=== PATIENT | male | born 1970 | race Hispanic/Latino ===

== ENCOUNTER 2025-10-06 18:41 | Emergency (ER) | payer BC, SELFPAY ==
--- OUTSIDE RECORDS SUMMARY | 2022-11-25 04:15 | XMS_ITS | Continuity of Care Document ---
Author Organization [facility] Address [address] [place] [phone] Phone Care Team Providers Care Prior Authorization Technician Name Role Phone Juli Martinez OD Unavailable Unavailable Allergies, Adverse Reactions, Alerts Substance Reaction Status Criticality No Known Allergies Active No Inform ation Medications Medication Instructions Dosage Effective Dates (start - stop) Status Comments amoxicillin 500 mg tablet take 1 tablet by oral route every 8 hours 500 MG - Active ibuprofen 600 mg tablet take 1 tablet by oral route 3 times every day with food 600 MG - Active Procedures Procedure Date REFRACTION EYE EXAM, NEW PATIENT INTRAORAL PERIAPICAL FIRST FILM 020 BITEWING - SINGLE FILM LIMITED ORAL EXAM, PROBLEM FOCUSED ORAL HYGIENE INSTRUCTIONS Chart Approval New Dental Client INITIAL ORAL EXAM Caries Risk Assessmt And Document W/High Risk ORAL HYGIENE INSTRUCTIONS NUTRIT CNSL CONTROL DENTAL DISEASE INTRAORAL-COMPLETE SERIES Chart Approval New Dental Client OFFICE/OUTPATIENT VISIT, EST OFFICE/OUTPATIENT VISIT, EST OFFICE/OUTPATIENT VISIT, EST OFFICE/OUTPATIENT VISIT, EST OFFICE/OUTPATIENT VISIT, NEW Advance Directives Directive Yes / No Effective Date File Name No Information Encounters Encounter Description Practice Location Reason(s) For Visit Diagnoses Date Provider Providers Copied on Encounter [facility], [address] [place] [address], [id number], [place] tel:[phone] [facility] blurry vision (chief complaint) Body mass index (BMI) 25.0-25.9, adultRefractive amblyopia, left eyeHypermetropia , left eyeRegular astigmatism, bilateralPresbyo kendall 3 Juan Carolavelle. [address] [place] [address], [id number], [place]. tel:[phone] [facility], [address] [place] [address], [id number], [place] tel:[phone] [facility] Dental Encounter for dental exam and cleaning w abnormal findings 0 Darío Liban. [address] [place] [address], [id number], [place]. tel:[phone] [facility], [address] [place] [address], [id number], [place] tel:[phone] [facility] Dental Encounter for dental exam and cleaning w abnormal findingsEncounte r for dental exam and cleaning w abnormal findings 7 No Information OFFICE/OUTPA TIENT VISIT, EST [facility], [address] [place] [address], [id number], [place] tel:[phone] [facility] No Information 2 Catalino Dover. [address] [place] [address], [id number]. tel:[phone] OFFICE/OUTPA TIENT VISIT, EST [facility], [address] [place] [address], [id number], [place] tel:[phone] [facility] No Information 1 No Information OFFICE/OUTPA TIENT VISIT, EST [facility], [address] [place] [address], [id number], [place] tel:[phone] [facility] No Information 1 Taz Cash. [address] [place] [address], [id number]. tel:[phone] OFFICE/OUTPA TIENT VISIT, [facility], [address] [place] [address], [id number], [place] tel:[phone] [facility] No Information 1 Taz Cash. [address] [place] [address], [id number]. tel:[phone] OFFICE/OUTPA TIENT VISIT, [facility], [address] [place] [address], [id number], [place] tel:[phone] [facility] No Information 1 Taz Cash. [address] [place] [address], [id number]. tel:[phone] Family History Family Member Type Diagnosis Age At Onset No Information Payers Payer name Insurance type Covered green party ID Authoriza tion(s) No Information Social History Type Description Quantity Date Captured Comments Alcohol Use Details No Caffeine Use Details No Tobacco Use Status Heavy cigarette smok er (20-39 cigs/day) Smoking Status Heavy tobacco smoker Smoking Tobacco Use Details Cigarette: No Details Available Cigarette: 1 Packs per day Sex Male Vital Signs Date / Time: Height Weight BMI Pulse Rate Blood Pressure Temperature Respiratory Rate Body Surface Area Head Circumference Head Circ. Percentile Wt./Tushar. Percentile BMI percentile Pulse Ox Inhaled Ox 10:37 AM 68.00 in 75.296 kg (166.00 lbs) 25.2 4 kg/m eter (2) 110/75 mm[Hg] Chief Complaint And Reason For Visit From encounter dated '11/25/2022 10:15'. blurry vision (chief complaint). Description: patient complains of blurry vision at near, OU. OS>OD. Patient does not currently wear any correction whatsoever. Patient used to wear glasses asa child and states that one lens was very thin and one was very thick and states that everything looks small and blurry if OD is closed. Patient was not consistent in wearing glasses, so discontinueduse from childhood. Patient currently also complains of night time driving glare. Does not use any drops. Pain 0/10. (-) BABCOCK, diplopia, flashes/floaters(-) flu shot Reason For Referral Reason For Referral No Information Plan Of Treatment Date Type Action Status Goal Tdap. Due on due Goal Dental Referral. Due on due Goal CT-Colonography. Due on due Goal FIT. Due on due Goal FIT-DNA. Due on due Goal Hepatitis C screening. Due o n due Goal Unhealthy drug u se screening. Due on due Goal Zoster vaccine (). Due on due Goal Lipid panel. Due on 023 due Goal Influenza vaccine. Due on due Goal FOBT. Due on due Goal Td vaccine. Due on 23 due Goal Depression screening. Due on due Goal HEALTH RISK ASSE SSMENT TEST. Due on due Goal Colonoscopy. Due on 023 due Goal Sigmoidoscopy. Due on due Goal Diabetes screening. Due on due Goal Dietary manageme nt education, guidance, and counseling completed Goal Diabetes screening. Due on A due Goal Sigmoidoscopy. Due on due Goal Colonoscopy. Due on 020 due Goal HEALTH RISK ASSE SSMENT TEST. Due on due Goal Depression screening. Due on due Goal Td vaccine. Due on 20 due Goal FOBT. Due on due Goal Influenza vaccine. Due on due Goal Lipid panel. Due on 020 due Goal Tdap. Due on due Goal Dental Referral. Due on due Referral Ordered: Referrals: Maxillofacial Surgery. Evaluate and treat ordered Patient Education Tooth and Gum Pain: Car e Instructions completed Patient Education Learning About Dental C are completed History Of Present Illness Encounter Date Complaint History Of Prese nt Illness blurry vision patient complain s of blurry vision at near, OU. OS>OD. Patient does not currently wear any correction whatsoever. Patient used to wear glasses as a child and states that one lens was very thin and one was very thick and states that everything looks small and blurry if OD is closed. Patient was not consistent in wearing glasses, so discontinued use from childhood. Patient currently also complains of night time driving glare. Does not use any drops. Pain 0/10. (-) BABCOCK, diplopia, flashes/floaters(-) flu shot Functional Status Date Functional Assessmen t Pain Score 0/10 Instructions Date Instruction Additional Infor lianne Impression/Plan Related to Refra ctive amblyopia, left eye Impression/Plan Related to Hyper metropia, left eye Impression/Plan Related to Regul ar astigmatism, bilateral Impression/Plan Related to Presb yopia Dietary management e ducation, guidance, and counseling Related to Body mass index [BMI] 25.0-25.9, adult Assessments Type Assessment Date assessment Body mass index [BMI] 25.0-25.9, adult assessment Refractive amblyopia, left eye J assessment Hypermetropia, left eye 023 assessment Regular astigmatism, bilateral J assessment Presbyopia impression Refractive amblyopia, left eye: H53.022 impression Hypermetropia, left eye: H52.02 impression Regular astigmatism, bilateral: H52.223 impression Presbyopia: H52.4 Patient Care Teams Name Effective Dates (start - stop) Status Members No Information
--- NOTE | ~2025-10-06 | US_ITS ---
EXAMINATION: US scrotum doppler, 10/06/2025 18:48 LEASING ASSOCIATE HISTORY: pain right testicle Comparison: None Technique: Max-scale and color Doppler images were obtained of the testes with spectral analysis to document arterial and venous flow. Findings: Right Testicle:Right testicle 3.5 x 1.9 x 2.7 cm, normal parenchyma, normal flow. Right Epidiymis:Right epididymal simple cyst 5 x 5 mm, no increased flow. Left Testicle: Left testicle 4 x 1.9 x 2.1 cm, normal parenchyma, normal flow. Left Epidiymis: Unremarkable. Normal flow. Hydrocele: Small simple right hydrocele. Small simple left hydrocele. . Varicocele: None Scrotum: Unremarkable. No skin thickening. Impression: No acute process. Reviewed, dictated and finalized at location P. ING ASSOCIATE Impression: No acute process.
[2025-10-06 18:45] VITALS: BP 113/77; PULSE 58; RESP 18; TEMP 36.6; O2SAT 99
[2025-10-06 19:30] LABS: Add Urine Microscopic? NO; Appearance Urine Clear (Clear); Glucose Urine UA Negative (Negative); Leukocyte Esterase Ur Negative LEU/UL (Negative); Nitrate Urine Negative (Negative); Specific Grav Ur 1.027 (1.001-1.035)
--- NOTE | 2025-10-06 20:02 | ED_ITS ---
HPI - Male Genitourinary General Chief complaint: Urogenital-Male Stated complaint: pain in R testicle Time Seen by Provider: 10/06/25 19:04 History of Present Illness HPI Narrative: 55-year-old male with a history of prior stroke currently on daily aspirin therapy. Also has a history of prostate enlargement on tamsulosin. Patient presents to the emergency department today with right-sided testicular pain for 1 day. No testicular swelling or traumatic injury. No dysuria but states he is going to the bathroom frequently. No foul odor or blood in the urine. No back pain, pelvic pain, nausea, vomiting, fever, chills. No concerns of rash or STD. Has residual left-sided deficits from his stroke worse in the upper extremity than his left-sided lower extremity and has some facial droop on the left side chronic. Related Data Allergies Allergy/AdvReac Type Severity Reaction Status Date / Time No Known Allergies Allergy Verified 10/06/25 18:48 Review of Systems 2 Review of Systems: As reviewed above in HPI Exam Narrative: GENERAL: [Well-appearing, well-nourished, and in no acute distress.] HEAD: [Normocephalic, atraumatic.] EYES: [PERRLA and EOMI.] ENT: Nares clear, no rhinorrhea or epistaxis. Mucous membranes moist. NECK: Supple. CHEST: [Clear to auscultation. No respiratory distress.] HEART: [Regular rate and rhythm]. No murmur heard. [Normal peripheral pulses.] ABDOMEN: [Soft, nondistended], [nontender], [No rigidity or guarding] : Chaperoned testicular examination shows no asymmetry or masses. No penile masses or tenderness. No rashes. No inguinal hernias. No scrotal erythema or enlargement. No discoloration or signs of injury or trauma. EXTREMITIES: Normal range of motion. [No edema.] SKIN: Warm, dry, no rash. NEURO: [No focal deficits]. Alert and oriented [x3.] PSYCH: [Normal mood and affect.] Course Vital Signs Vital signs: Vital Signs Temperature 36.6 C 10/06/25 18:45 Pulse Rate 58 L 10/06/25 18:45 Respiratory Rate 18 10/06/25 18:45 Blood Pressure 113/77 10/06/25 18:45 Pulse Oximetry 99 10/06/25 18:45 Oxygen Delivery Room Air 10/06/25 18:45 Temperature 36.6 C 10/06/25 18:45 Pulse Rate 55 L 10/06/25 20:43 Respiratory Rate 18 10/06/25 20:43 Blood Pressure 108/95 H 10/06/25 20:43 Pulse Oximetry 98 10/06/25 20:43 Oxygen Delivery Room Air 10/06/25 18:45 MDM - Male Genitourinary MDM Narrative Medical decision making narrative: 55-year-old male with a history of prior stroke currently on daily aspirin therapy. Also has a history of prostate enlargement on tamsulosin. Patient presents to the emergency department today with right-sided testicular pain for 1 day. No testicular swelling or traumatic injury. No dysuria but states he is going to the bathroom frequently. No foul odor or blood in the urine. No back pain, pelvic pain, nausea, vomiting, fever, chills. No concerns of rash or STD. Has residual left-sided deficits from his stroke worse in the upper extremity than his left-sided lower extremity and has some facial droop on the left side chronic. Chaperoned testicular examination shows no asymmetry or masses. No penile masses or tenderness. No rashes. No inguinal hernias. No scrotal erythema or enlargement. No discoloration or signs of injury or trauma. Patient is hemodynamically stable. Suspect possibility of UTI, hydrocele, varicocele, low suspicion testicular torsion based on exam findings. Patient given [place] for analgesia urinalysis and ultrasound obtained. Workup shows no urinary tract signs of infection or blood. Scrotal ultrasound shows simple right hydrocele otherwise no acute process. No skin thickening. He has a right epididymal simple cyst as well no increased floor signs of torsion. Likely source of patient's pain. Will be discharged with Urology follow-up as there are no urgent or emergent findings. Medical Records Attestation: I reviewed the patient's medical records. Lab Data Attestation: I reviewed the patient's lab results. Labs: Lab Results 10/06/25 Range/Units 19:24 Urine Color Yellow (Yellow) Urine Appearance Clear (Clear) Urine pH 5.5 (5.0-9.0) Ur Specific [place] 1.027 (1.001-1.035) Urine Protein Negative (Negative) mg/dL Urine Glucose (UA) Negative (Negative) mg/dL Urine Ketones Trace H (Negative) mg/dL Ur Blood (Man) Negative (Negative) Urine Nitrate Negative (Negative) Urine Bilirubin Negative (Negative) Urine Urobilinogen 1.0 (<2.0) mg/dL Leukocyte Esterase Rfl Negative (Negative) JENS/UL Imaging Data Attestation: I personally reviewed and interpreted this imaging study as follows: My impression: Impressions Scrotum Ultrasound 10/06/25 19:52 Impression: No acute process. Discharge Plan Discharge Clinical Impression: Pain in right testicle, Hydrocele, right, Epididymal cyst Patient Disposition: Home Condition: Stable Instructions: Antibiotic Form, Testicle Pain (ED) Additional Instructions: ultrasound shows a small simple cyst in the right testicle as well as some simple appearing fluid called the hydrocele in the scrotal sac. No signs of urgent or emergent concerns. No testicular detorsion masses or signs of infection. You can wear compression underwear for scrotal support and take Tylenol/ ibuprofen every 6-8 hours for pain control. Follow-up with the provided urologist if not improving with conservative therapy. Return with any worsening pain, nausea, vomiting, fever or any other emergent issues. Patient Language: Salvadorean Follow-up/Referrals: Marck Van MD [Physician, Urology] - 1 Week Referral Note: Right testicular pain and simple appearing cyst/hydrocele PHYSICIAN NOT ON STAFF,NONSTAFF [Primary Care Provider] Time of Disposition: 20:18
--- OUTSIDE RECORDS SUMMARY | 2025-10-06 20:03 | XMS_ITS | Patient Health Record ---
Author Organization [facility] Address [address] [place] [address] Care Team Providers Care International Editorial Producer Name Role Phone CAROLE WEBER Unavailable [phone] Reason For Referral No Information Problems Problem Type SNOMED Code ICD Code Onset Dates Problem Status W/U Status Risk Notes Problem Neck sprain (234795573) Neck sprain (847.0) 08/20/2014 Active confirmed [id number] - Problem Neck pain (79597574) Neck pain (723.1) 08/20/2014 Active confirmed [facility] [id number] - Plan Of Treatment No Information Insurance Providers Payer Name Payer Address Payer Phone Subscriber Number Group Number Insured Name Patient Relationship to Insured Coverage Start Date Coverage End Date Time Warden [id number] Didier Torrez Self - patient is the insured 4 [phone]
--- OUTSIDE RECORDS SUMMARY | 2025-10-06 20:03 | XMS_ITS | Clinical Summary ---
Author Organization [facility] Address [address] [place] [id number] Care Team Providers Care Retention Manager Name Role Phone Brianna Shaw Primary Care Provider [phone] Medications atorvastatin (Lipitor) 80 MG tablet Take 1 tablet (80 mg total) by mouth 1 (one) time each day in the evening. 09/12/2025 Active carvedilol (Coreg) 6.25 MG tablet Take 1 tablet (6.25 mg total) by mouth in the morning and 1 tablet (6.25 mg total) in the evening. Take with meals. 07/25/2025 Active clopidogrel (Plavix) 75 MG tablet Take 1 tablet (75 mg total) by mouth 1 (one) time each day. 03/23/2025 Active docusate sodium (Colace) 100 MG capsule take 1 capsule by mouth twice daily as needed 09/19/2025 Active escitalopram (Lexapro) 10 MG tablet Take 1 tablet (10 mg total) by mouth 1 (one) time each day. 09/19/2025 Active HYDROcodone-silvio taminophen (Hutchinson) 5-325 MG tablet TAKE ONE-HALF TABLET BY MOUTH EVERY 6 HOURS NEEDED FOR PAIN 09/19/2025 Active losartan (Cozaar) 50 MG tablet Take 1 tablet (50 mg total) by mouth 1 (one) time each day. Active potassium chloride (Klor-Con) 20 MEQ packet Take 20 mEq by mouth. Active tamsulosin (Flomax) 0.4 MG capsule Take 1 capsule (0.4 mg total) by mouth 1 (one) time each day. 07/25/2025 Active amLODIPine (Norvasc) 5 MG tablet Take 1 tablet (5 mg total) by mouth 1 (one) time each day. 07/25/2025 Active ASPIRIN 81 MG chewable tablet Chew 1 tablet (81 mg total) 1 (one) time each day. 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 Mixed hyperlipidemia 08/09/2025 History of CVA (cerebrovascular accident) 2024 Left-sided weakness 07/26/2025 Chest pain 04/01/2025 Tobacco use 03/22/2025 Essential hypertension 03/12/2025 Elevated blood pressure reading 04/25/2024 Poison oak dermatitis 11/10/2023 Encounters Date Type Department Care Team Description 10/03/2025 10:30 AM JEWELRY CASTING MODEL MAKER APPRENTICE Ancillary Procedure [facility] [place] [address] [place] [phone] Cerebrovascular accident (CVA), unspecified mechanism 10/02/2025 Orders Only [facility] [place] [address] [place] [phone] Provider, Historical 09/24/2025 10:00 AM JEWELRY CASTING MODEL MAKER APPRENTICE Consult [facility] [place] [address] [place] [phone] Terrance Marie MD Cerebrovascular accident (CVA), unspecified mechanism (Primary Dx); Elevated blood pressure reading; Mixed hyperlipidemia from Last 3 Months Social History Tobacco Use Types Packs/Day Years Used Date Smoking Tobacco: Never Passive Smoke Exposure: Never Smokeless Tobacco: Never Sex and Gender Information Value Date Recorded Sex Assigned at Not on file Legal Sex Male 2:44 AM EST Gender Identity Not on file Sexual Orientation Not on file Last Filed Vital Signs Vital Sign Reading Time Taken Comments Blood Pressure 120/64 09/24/2025 10:15 AM JEWELRY CASTING MODEL MAKER APPRENTICE Pulse 48 09/24/2025 10:15 AM JEWELRY CASTING MODEL MAKER APPRENTICE Temperature - - Respiratory Rate - - Oxygen Saturation - - Inhaled Oxygen Concentration - - Weight 72.1 kg (159 lb) 09/24/2025 10:15 AM JEWELRY CASTING MODEL MAKER APPRENTICE Height - - Body Mass Index - - Plan of Treatment Upcoming Encounters Date Type Department Care Team (Late st Contact Info) Description 10/18/2025 4:00 PM JEWELRY CASTING MODEL MAKER APPRENTICE Appointment [facility] Cardiac Ultrasound [address] [place] [address] 12/03/2025 2:30 PM JEWELRY CASTING MODEL MAKER APPRENTICE Office Visit [facility] [place] [address] [place] [address] Terrance Marie MD [address] [place] [address] Health Maintenance Due Date Last Done Comments CT Colonography 1969 Cologuard 1969 Colonoscopy 1969 Colorectal Cancer Screening 1969 FIT 1969 FOBT 1969 HIV Screening 1969 Sigmoidoscopy 1969 MMR Vaccines (1 of 1 - Standard series) 1970 Annual Physical 12/02/1971 Diabetes: Foot Exam 1979 Diabetes: Retinopathy Screening 1979 Depression Screening 1981 Diabetes: Urine Protein Screening 1988 Hepatitis B Vaccines (1 of 3 - 19+ 3-dose series) 1988 Pneumococcal Vaccine: 50+ Years (1 of 1 - PCV) 2019 Zoster Vaccines (1 of 2) 2019 COVID-19 Vaccine (1 - 2024-2 6 season) 2025 Influenza Vaccine (#1) 2025 Diabetes: Hemoglobin A1C 12/30/2025 025, 08/04/2025 Lipid Panel 09/29/2026 09/29/2025, 08/04/2025 DTaP/Tdap/Td Vaccines (4 - T d or Tdap) 01/02/2034 01/02/2024, 04/14/2016, 04/14/2016 Respiratory Syncytial Virus (RSV) 60 years and older and/or patients (1 - 1-dose 75+ series) 2044 HPV Vaccines Aged Out No longer eligi ble based on patient's age to complete this topic Hepatitis A Vaccines Aged Out No long er eligible based on patient's age to complete this topic Meningococcal B Vaccine Aged Out No l onger eligible based on patient's age to complete this topic Meningococcal Vaccine Aged Out No rogerio guido eligible based on patient's age to complete this topic Respiratory Syncytial Virus (RSV) <20 months Aged Out No longer eligible b ased on patient's age to complete this topic Procedures Procedure Name Priority Date/Time Associated Diagnosis Comments CT ANGIO HEAD NECK W AND WO IV CONTRAST Routine 10/02/2025 7:59 AM JEWELRY CASTING MODEL MAKER APPRENTICE EXTERNAL LAB REPORT Routine 10/02/2025 7 :52 AM JEWELRY CASTING MODEL MAKER APPRENTICE CT HEAD WO IV CONTRAST Routine 10/02/2025 7:49 AM JEWELRY CASTING MODEL MAKER APPRENTICE US CAROTID DOPPLER BILATERAL Routine 10/02/2025 7:46 AM JEWELRY CASTING MODEL MAKER APPRENTICE MR BRAIN W AND WO IV CONTRAST Routine 10/02/2025 7:42 AM JEWELRY CASTING MODEL MAKER APPRENTICE ECG 12-LEAD Routine 10/02/2025 7:38 AM JEWELRY CASTING MODEL MAKER APPRENTICE ECG 12-LEAD Routine 09/24/2025 10:05 AM JEWELRY CASTING MODEL MAKER APPRENTICE Cerebrovascular accident (CVA), unspecified mechanism from Last 3 Months Results * CT Angio Head Neck W and WO IV Contrast (10/02/2025 7:59 AM JEWELRY CASTING MODEL MAKER APPRENTICE) Anatomical Region Laterality Modality Head, Neck N/A Computed Tomogra phy Historical Provider IMG CT PROCEDURES Final R esult * External Lab Report (10/02/2025 7:52 AM JEWELRY CASTING MODEL MAKER APPRENTICE) us Historical Provider LAB BLOOD ORDERABLES Eleanor l Result * CT Head WO IV Contrast (10/02/2025 7:49 AM JEWELRY CASTING MODEL MAKER APPRENTICE) Anatomical Region Laterality Modality Head, Neck N/A Computed Tomogra phy Historical Provider IMG CT PROCEDURES Final R esult * US Carotid Doppler Bilateral (10/02/2025 7:46 AM JEWELRY CASTING MODEL MAKER APPRENTICE) Anatomical Region Laterality Modality Head, Neck Bilateral Ultrasound us Historical Provider IMG US PROCEDURES Final R esult * MR Brain W and WO IV Contrast (10/02/2025 7:42 AM JEWELRY CASTING MODEL MAKER APPRENTICE) Anatomical Region Laterality Modality Brain N/A Magnetic Resonan ce Historical Provider IMG MRI PROCEDURES Final Result * ECG 12 lead (10/02/2025 7:38 AM JEWELRY CASTING MODEL MAKER APPRENTICE) Only the most recent of2 resultswithin the time period is included. Historical Provider ECG ORDERABLES Final Res ult from Last 3 Months Insurance [facility] MEDICAID Care Teams Retention Manager Relationship Specialty Start Date End Date Brianna Shaw [address] [place] [phone] PCP - General 09/24/25
--- OUTSIDE RECORDS SUMMARY | 2025-10-06 20:03 | XMS_ITS | Encounter Summary ---
Author Organization [employer] [facility] Address [address] [place] [address], [address] [place] [address] Phone Care Team Providers Care Engineer Technical Staff Name Role Phone No Pcp, General Primary Care Provider Unavailabl e Encounter Details Date Type Department Care Team (Late st Contact Info) Description 03/14/[address] [address] Judy Melgar MD [address] [place] [phone] Social History Tobacco Use Types Packs/Day Years Used Date Smoking Tobacco: Never Assessed Sex and Gender Information Value Date Recorded Sex Assigned at Not on file Legal Sex Male 12:16 PM CDT Gender Identity Not on file Sexual Orientation Not on file documented as of this encounter Plan of Treatment Not on file documented as of this encounter Visit Diagnoses Not on filedocumented in this encounter Care Teams Engineer Technical Staff Relationship Specialty Start Date End Date No Pcp, General PCP - General 04/02/25 documented as of this encounter
--- OUTSIDE RECORDS SUMMARY | 2025-10-06 20:03 | XMS_ITS | Clinical Summary ---
Author Organization [facility] Address [address] [place] [address], [address] [address] Phone Care Team Providers Care Pusher Runner Name Role Phone No Pcp, General Primary Care Provider Unavailabl e Social History Tobacco Use Types Packs/Day Years Used Date Smoking Tobacco: Never Assessed Sex and Gender Information Value Date Recorded Sex Assigned at Not on file Legal Sex Male 12:16 PM CDT Gender Identity Not on file Sexual Orientation Not on file Plan of Treatment Health Maintenance Due Date Last Done Comments Influenza Vaccine (#1) 2025 Insurance [facility] MEDICAID ADVANTAGE Care Teams Pusher Runner Relationship Specialty Start Date End Date No Pcp, General PCP - General 04/02/25
--- OUTSIDE RECORDS SUMMARY | 2025-10-06 20:03 | XMS_ITS | Encounter Summary ---
[facility] Organization [facility] Address [address] [place] [id number] Care Team Providers Care Giver Name Role Phone Brianna Shaw Primary Care Provider [phone] Source Comments Please be aware that You and/or your organization are solely responsible for the use, security, privacy, and any decisions made with any information you receive from [facility] Reason for Referral * Imaging (Routine) - Incomplete Specialty Diagnoses / Procedures Referred By Contac t Referred To Contact Radiology Procedures CT Angio Head Neck W and WO IV Contrast [facility] [address] [place] [phone] Phone: tel: fax: Referral ID Status Reason Start Date Expiration Date V isits Requested Visits Authorized [id number] Incomplete 10/02/2025 10/02/2026 1 1 * Imaging (Routine) - Incomplete Specialty Diagnoses / Procedures Referred By Contac t Referred To Contact Radiology Procedures CT Head WO IV Contrast [facility] [place] [address] [facility] [address] [place] [address] Phone: tel: fax: Referral ID Status Reason Start Date Expiration Date V isits Requested Visits Authorized [id number] Incomplete 10/02/2025 10/02/2026 1 1 * Imaging (Routine) - Incomplete Specialty Diagnoses / Procedures Referred By Contac t Referred To Contact Radiology Procedures US Carotid Doppler Bilateral [facility] [place] [address] [facility] [address] [place] [phone] Phone: tel: fax: Referral ID Status Reason Start Date Expiration Date V isits Requested Visits Authorized [id number] Incomplete 10/02/2025 10/02/2026 1 1 * Imaging (Routine) - Incomplete Specialty Diagnoses / Procedures Referred By Contac t Referred To Contact Radiology Procedures MR Brain W and WO IV Contrast [facility] [place] [address] [facility] [address] [place] [phone] Phone: tel: fax: Referral ID Status Reason Start Date Expiration Date V isits Requested Visits Authorized [id number] Incomplete 10/02/2025 10/02/2026 1 1 Encounter Details Date Type Department Care Team (Late Contact Info) Description 10/02/2025 Orders Only [facility] [address] [place] [phone] Provider, Historical [address] [place], [place] [id number] Social History Tobacco Use Types Packs/Day Years Used Date Smoking Tobacco: Never Passive Smoke Exposure: Never Smokeless Tobacco: Never Sex and Gender Information Value Date Recorded Sex Assigned at Not on file Legal Sex Male 2:44 AM EST Gender Identity Not on file Sexual Orientation Not on file documented as of this encounter Plan of Treatment Upcoming Encounters Date Type Department Care Team (Late Contact Info) Description 10/18/2025 4:00 PM LOSS PREVENTION/SAFETY DISTRICT MANAGER Appointment [facility] Cardiac Ultrasound [address] [place] [address] 12/03/2025 2:30 PM LOSS PREVENTION/SAFETY DISTRICT MANAGER Office Visit [facility] [address] [place] [address] Terrance Marie MD [address] [facility] [address] [place], [place] [phone] documented as of this encounter Procedures Procedure Name Priority Date/Time Associated Diagnosis Comments CT ANGIO HEAD NECK W AND WO IV CONTRAST Routine 10/02/2025 7:59 AM LOSS PREVENTION/SAFETY DISTRICT MANAGER EXTERNAL LAB REPORT Routine 10/02/2025 7:52 AM LOSS PREVENTION/SAFETY DISTRICT MANAGER CT HEAD WO IV CONTRAST Routine 10/02/2025 7:49 AM LOSS PREVENTION/SAFETY DISTRICT MANAGER US CAROTID DOPPLER BILATERAL Routine 10/02/2025 7:46 AM LOSS PREVENTION/SAFETY DISTRICT MANAGER MR BRAIN W AND WO IV CONTRAST Routine 10/02/2025 7:42 AM LOSS PREVENTION/SAFETY DISTRICT MANAGER ECG 12-LEAD Routine 10/02/2025 7:38 AM LOSS PREVENTION/SAFETY DISTRICT MANAGER documented in this encounter Results * CT Angio Head Neck W and WO IV Contrast (10/02/2025 7:59 AM LOSS PREVENTION/SAFETY DISTRICT MANAGER) Anatomical Region Laterality Modality Head, Neck N/A Computed Tomogra phy Historical Provider IMG CT PROCEDURES Final R esult * External Lab Report (10/02/2025 7:52 AM LOSS PREVENTION/SAFETY DISTRICT MANAGER) Historical Provider LAB BLOOD ORDERABLES Eleanor l Result * CT Head WO IV Contrast (10/02/2025 7:49 AM LOSS PREVENTION/SAFETY DISTRICT MANAGER) Anatomical Region Laterality Modality Head, Neck N/A Computed Tomogra phy Historical Provider IMG CT PROCEDURES Final R esult * US Carotid Doppler Bilateral (10/02/2025 7:46 AM LOSS PREVENTION/SAFETY DISTRICT MANAGER) Anatomical Region Laterality Modality Head, Neck Bilateral Ultrasound Historical Provider IMG US PROCEDURES Final R esult * MR Brain W and WO IV Contrast (10/02/2025 7:42 AM LOSS PREVENTION/SAFETY DISTRICT MANAGER) Anatomical Region Laterality Modality Brain N/A Magnetic Resonan ce us Historical Provider IMG MRI PROCEDURES Final Result * ECG 12 lead (10/02/2025 7:38 AM LOSS PREVENTION/SAFETY DISTRICT MANAGER) us Historical Provider ECG ORDERABLES Final Res ult documented in this encounter Visit Diagnoses Not on filedocumented in this encounter Care Teams Giver Relationship Specialty Start Date End Date Brianna Shaw [address] [place] [phone] PCP - General 09/24/25 documented as of this encounter
[2025-10-06] MEDS: HYDROcodone/acetaminophen (*CRX) 5-325 MG TABLET 1 TAB PO (20:16)
[2025-10-06 20:43] VITALS: BP 108/95; PULSE 55; RESP 18; O2SAT 98
== END 2025-10-06 20:45 | disposition home or self-care (01) ==
PROVIDERS: Emergency Provider Student in an Organized Health Care Education/Training Program
DX: N50.3 Cyst of epididymis (principal); N43.3 Hydrocele, unspecified; Z86.73 Personal history of transient ischemic attack (TIA), and cerebral infarction without residual deficits; N40.0 Benign prostatic hyperplasia without lower urinary tract symptoms; Z79.899 Other long term (current) drug therapy; Z79.82 Long term (current) use of aspirin
CPT/HCPCS: 76870; 81003; 93976; 99284; A9270